=== PATIENT | female | born 1950 | race African-American/Black ===

== ENCOUNTER → 2021-10-14 | Outpatient (CLI) | payer MEDICARE, OTHER ==
[~2021-10-14] VITALS: Ht 152.4 cm; Wt 95.0 kg
[~2021-10-14] MED LIST: ALBU8.5H8 IH; ARIP2TAB27 PO; ASPI-1450 PO; ATOR20TA86 PO; CETI-450 PO; CHOL100018 PO; FERR325T27 PO; FLUT16H NASAL; FOLI-130 PO; FURO40 PO; HYDR-4061 PO; HYDR200T38 PO; IBUP-2070 PO; MAGN400T7 PO; MOME17N NASAL; OMEP20 PO; PREG75 PO; SERT-162 PO; SPIR-37 PO
[2021-10-14 12:41] VITALS: BP 145/91
== END | disposition home or self-care (01) ==
LOC: SRCNTR 11:01
PROVIDERS: ATTEND Internal Medicine Critical Care Medicine
DX: I10 Essential (primary) hypertension (principal); J44.9 Chronic obstructive pulmonary disease, unspecified; M19.90 Unspecified osteoarthritis, unspecified site; M06.9 Rheumatoid arthritis, unspecified; J98.6 Disorders of diaphragm; J96.91 Respiratory failure, unspecified with hypoxia; E66.01 Morbid (severe) obesity due to excess calories
CPT/HCPCS: G0463

== ENCOUNTER → 2021-10-16 | Outpatient (CLI) | payer MEDICARE, OTHER | END | disposition home or self-care (01) | LOC: RADMN 12:39 | PROVIDERS: ATTEND Internal Medicine Critical Care Medicine | DX: I70.0 Atherosclerosis of aorta (principal); R05.9 Cough, unspecified | CPT/HCPCS: 71046 ==

== ENCOUNTER → 2021-12-20 | Outpatient (CLI) | payer MEDICARE, OTHER ==
[~2021-12-20] VITALS: Ht 157.5 cm; Wt 96.0 kg
[2021-12-20 11:46] VITALS: BP 142/75
== END | disposition home or self-care (01) ==
LOC: SRCNTR 11:19
PROVIDERS: ATTEND Internal Medicine Critical Care Medicine
DX: G47.33 Obstructive sleep apnea (adult) (pediatric) (principal); J44.9 Chronic obstructive pulmonary disease, unspecified; G93.2 Benign intracranial hypertension; E66.01 Morbid (severe) obesity due to excess calories; J96.91 Respiratory failure, unspecified with hypoxia; M06.9 Rheumatoid arthritis, unspecified; J98.6 Disorders of diaphragm
CPT/HCPCS: G0463